=== PATIENT | male | born 1995 | race African-American/Black ===

== ENCOUNTER 2017-04-05 11:53 | Emergency (ER) | payer MEDICAID ==
[~2017-04-05] VITALS: Ht 172.7 cm; Wt 107.0 kg
[2017-04-05] MEDS ORDERED: DULO60CA44 PO (12:23)
[2017-04-05] MEDS ORDERED: LITHBID PO (12:23)
[2017-04-05] MEDS ORDERED: LAMO100T PO (12:23)
[2017-04-05 19:02] LABS: BASOPHILS % 0.5 % (0.0-2.0); EOSINOPHILS % 1.2 % (0.0-5.0); HEMATOCRIT. 42.7 % (42.0-52.0); HEMOGLOBIN. 13.9 g/dL (14.0-18.0); LYMPHOCYTES % 22.3 % (20.0-50.0); MEAN CORPUSCULAR HEMOGLOBIN 29.3 pg (28.0-32.0); MEAN CORPUSCULAR VOLUME 89.8 fL (80.0-94.0); MEAN PLATELET VOLUME 8.4 fl (7.4-10.4); MONOCYTES % 8.7 % (2.0-8.0); NEUTROPHILS % 67.3 % (40.0-76.0); PLATELET 232 x1000/uL (130-400); RED BLOOD CELL COUNT 4.75 mill/uL (4.7-6.1); RED CELL DISTRIBUTION WIDTH 12.4 % (11.6-14.6)
[2017-04-05 19:06] LABS: CHLORIDE 105 mEq/L (98-107)
[2017-04-05 19:10] LABS: INR 1.2
[2017-04-05 19:13] LABS: CARBON DIOXIDE 26 mEq/L (21-32)
[2017-04-05 19:17] LABS: TROPONIN I < 0.02 ng/mL (0.00-0.04)
[2017-04-05 19:21] LABS: CLARITY URINE CLEAR (CLEAR); COLOR URINE YELLOW (YELLOW); GLUCOSE URINE NEGATIVE (NEGATIVE); KETONES URINE NEGATIVE (NEGATIVE); LEUKOCYTE ESTERASE URINE NEGATIVE (NEGATIVE); NITRITE URINE NEGATIVE (NEGATIVE); OCCULT BLOOD URINE NEGATIVE (NEGATIVE); PH URINE 5.5 (4.5-8.0); PROTEIN URINE NEGATIVE (NEGATIVE); SPECIFIC GRAVITY URINE 1.021 (1.005-1.030)
[2017-04-05 19:25] LABS: CARBAMAZEPINE < 0.5 ug/mL (4-12); PHENOBARBITAL < 2.1 ug/mL (15.0-40.0)
[2017-04-05 19:47] LABS: *AMPHETAMINES SCREEN URINE NEGATIVE (NEGATIVE); *BARBITURATES SCREEN URINE NEGATIVE (NEGATIVE); *BENZODIAZEPINES SCREEN URINE NEGATIVE (NEGATIVE); *COCAINE SCREEN URINE NEGATIVE (NEGATIVE); CANNABINOID URINE SCREEN NEGATIVE (NEGATIVE); METHADONE URINE SCREEN NEGATIVE (NEGATIVE); OPIATES URINE SCREEN NEGATIVE (NEGATIVE); PHENCYCLIDINE URINE SCREEN NEGATIVE (NEGATIVE)
[2017-04-05 23:00] VITALS: BP 98/57
== END 2017-04-05 23:28 | disposition home or self-care (01) ==
LOC: ER 11:53
DX: N39.0 Urinary tract infection, site not specified (principal); R56.9 Unspecified convulsions
CPT/HCPCS: 36415; 70450; 71010; 80053; 80156; 80165; 80184; 80185; 80305; 81001; 83605; 84484; 85025; 85610; 87040; 87086; 93005; 99285; Z7610

== ENCOUNTER 2017-09-13 09:57 | Emergency (ER) | payer MEDICAID ==
[~2017-09-13] VITALS: Ht 175.3 cm; Wt 107.0 kg
[~2017-09-13 09:57] MED LIST: DULO60CA44 PO; LAMO100T PO; LITHBID PO
[2017-09-13] MEDS ORDERED: SODIUM CHLORIDE 0.9% 1,000 ML IV ONE (11:32)
[2017-09-13] MEDS ORDERED: LEVETIRACETAM 500MG PREMIX 100 ML IV ONE (11:45)
[2017-09-13] MEDS ORDERED: TETRACAINE 0.5% OPHTH DROPS 4ML LEFTEYE ONE (11:45)
[2017-09-13] MEDS ORDERED: KETOROLAC 30MG/ML VIAL IV ONE (11:45)
[2017-09-13] MEDS ORDERED: FLUORESCEIN SODIUM 1MG/STRIP LEFTEYE ONE (11:45)
[2017-09-13 12:15] LABS: CHLORIDE 109 mEq/L (98-107)
[2017-09-13 12:25] LABS: BASOPHILS % 0.4 % (0.0-2.0); EOSINOPHILS % 0.7 % (0.0-5.0); HEMATOCRIT. 42.5 % (42.0-52.0); HEMOGLOBIN. 14.1 g/dL (14.0-18.0); LYMPHOCYTES % 16.8 % (20.0-50.0); MEAN CORPUSCULAR VOLUME 90.5 fL (80.0-94.0); MEAN PLATELET VOLUME 8.3 fl (7.4-10.4); MONOCYTES % 9.2 % (2.0-8.0); NEUTROPHILS % 72.9 % (40.0-76.0); PLATELET 250 x1000/uL (130-400); RED CELL DISTRIBUTION WIDTH 12.6 % (11.6-14.6)
[2017-09-13 15:10] VITALS: BP 123/68
== END 2017-09-13 15:20 | disposition home or self-care (01) ==
LOC: ER 11:09
DX: S00.12XA Contusion of left eyelid and periocular area, initial encounter (principal); R56.9 Unspecified convulsions; F32.9 Major depressive disorder, single episode, unspecified; J45.909 Unspecified asthma, uncomplicated; X58.XXXA Exposure to other specified factors, initial encounter; Y93.89 Activity, other specified; Y92.89 Other specified places as the place of occurrence of the external cause; Y99.8 Other external cause status
CPT/HCPCS: 36415; 70450; 70486; 80053; 85025; 96365; 96375; 99285; J1885; J1953; J7030; Z7610

== ENCOUNTER 2018-03-29 09:40 | Emergency (ER) | payer MEDICAID ==
[~2018-03-29] VITALS: Ht 175.3 cm; Wt 100.0 kg
[~2018-03-29 09:40] MED LIST changes: +AMIT25TA9 PO; -DULO60CA44 PO; +LEVE500T19 PO; -LITHBID PO
[2018-03-29 09:42] VITALS: BP 126/56
[2018-03-29] MEDS ORDERED: LEVETIRACETAM 500MG/5ML CUP PO ONE (10:30)
== END 2018-03-29 10:43 | disposition home or self-care (01) ==
LOC: ER 10:27
DX: G40.909 Epilepsy, unspecified, not intractable, without status epilepticus (principal)
CPT/HCPCS: 99282

== ENCOUNTER 2019-05-07 08:21 | Emergency (ER) | payer SELFPAY ==
[~2019-05-07] VITALS: Ht 175.3 cm; Wt 97.7 kg
[2019-05-07 10:50] VITALS: BP 115/65
== END 2019-05-07 10:50 | disposition home or self-care (01) ==
LOC: ER 08:21
DX: M54.89 Other dorsalgia (principal); R03.0 Elevated blood-pressure reading, without diagnosis of hypertension; F84.0 Autistic disorder; G40.909 Epilepsy, unspecified, not intractable, without status epilepticus; J45.909 Unspecified asthma, uncomplicated
CPT/HCPCS: 71045; 99283